=== PATIENT | female | born 1950 | race Caucasian/White ===

== ENCOUNTER 2019-01-07 00:45 | Inpatient (IN) ==
[2019-01-07] MEDS ORDERED: ZOFRAN IV ONE (01:55)
[2019-01-07] MEDS ORDERED: DILAUDID IV ONE (01:55)
--- NOTE | 2019-01-07 02:03 | PROVIDER DOCUMENTATION ---
HPI-Abdominal Pain/GI Problem - General Chief Complaint: Post Op Complaint Stated Complaint: POST OP COMPLICATIONS Time Seen by Provider: 01/07/19 01:55 Allergies/Adverse Reactions: Patient Allergies Allergy/AdvReac Type Severity Reaction Status Date / Time No Known Allergies Allergy Verified 01/02/19 10:18 Home Medications: Home Medication List Medication Instructions Recorded Confirmed Last Taken Type Levothyroxine [Synthroid] 125 microgm PO DAILY 04/22/15 01/02/19 01/05/19 08:00 History Fluoxetine [Prozac] 20 mg PO DAILY #0 capsule 04/28/15 01/02/19 01/05/19 08:00 Rx Fenofibrate [Tricor] 160 mg PO DAILY 01/02/19 01/02/19 01/05/19 08:00 History Losartan [Cozaar] 25 mg PO DAILY 01/02/19 01/02/19 01/05/19 08:00 History Hydrocodone/APAP 7.5 mg/325 mg 1 ea PO Q4H PRN #15 tab 01/06/19 Unknown Rx [Napoleon-7.5] - History of Present Illness-ABD Nature of Presenting Problems: Sever R az eof body pain. She had laproscopic cholecystectomy yest am. says she was slow to awaken, spent most of day in recovery, did not go home until afternoon. says that Dr Vaughne also had to move her stomach downNo relief with hydrocodone. No fever, no SOB, no N/V. Has not had flatus since surgery. Operative report was reviewed. Pain Radiation: reports: shoulder (bilateral) Quality of Pain: reports: sharp, stabbing Severity in ED: reports: severe Timing: reports: still present, constant Modifying Factors: improves with: movement (makes worse) Similar Symptoms Previously?: No Recently seen or treated by another doctor?: Yes Review of Systems - Adult - REVIEW OF SYSTEMS - ADULT Constitutional: reports: no symptoms reported Eyes: reports: no symptoms reported Ears, Nose, Mouth & Throat: reports: no symptoms reported Cardiovascular: reports: no symptoms reported Respiratory: reports: no symptoms reported Gastrointestinal: reports: see HPI Past History - Adult - PAST MEDICAL HISTORY-ADULT Review of Records: reports: Medications Reviewed Cardiovascular: reports: HTN Respiratory: reports: denies history Gastrointestinal: reports: cholelithiasis Musculoskeletal: reports: denies history Neurological: reports: denies history Psychiatric: reports: depression Endocrine/Immune: reports: thyroid disorder Physical Exam-General - PHYSICAL EXAM-ADULT Initial Vital Signs Reviewed: Yes - CONSTITUTIONAL General Appearance: appears well, alert, severe distress - EYES Eyes: PERRL/EOMI, pink conjunctivae - HEAD, EARS, NOSE, MOUTH & THROAT HENMT: normocephalic/atraumatic, moist mucous membranes, normal ENT inspection, pharynx normal - NECK Neck: full range of motion, supple, normal inspection - RESPIRATORY Respiratory: lungs clear, normal breath sounds, no pleuratic chest pain, no respiratory distress, no accessory muscle use - CARDIOVASCULAR Cardiovascular: regular rate, rhythm, no edema, no gallop, no murmur - GASTROINTESTINAL (ABDOMEN) Abdominal Exam: normal bowel sounds, soft, other (mild tender epigastrum, RUQ. 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 as tested, grossly normal, no motor/sensory deficits - PSYCHIATRIC Psych/Mental Status: normal mood/affect, normal thought content, normal thought process, oriented x 3 Progress - PLAN OF CARE/RESULTS Progress/Plan/Lab Results: Vital Signs - 8 hr 01/07/19 00:46 Temperature 97.6 F Pulse Rate 58 L Respiratory Rate 18 Blood Pressure 131/81 O2 Sat by Pulse Oximetry 97 Orders Category Date Time Status CT ABD/PELVIS W/IV CONT ONLY [CT] Stat Exams 01/07/19 01:56 Ordered CBC WITH DIFF [HEME] Stat Lab 01/07/19 01:56 Uncollected COMPREHENSIVE METABOLIC PANEL [CHEM] Stat Lab 01/07/19 01:56 Uncollected Hydromorphone [Dilaudid] Med 01/07/19 01:55 Discontinued 2 mg IV NOW ONE Ondansetron [Zofran] Med 01/07/19 01:55 Discontinued 8 mg IV NOW ONE Result Diagrams: 01/07/19 02:36 01/07/19 02:36 - CT/MRI 1 CT Study: Abdomen, Pelvis Impression: Abnormal (post op changeswith RUQ fat induration, small amt blood in GB fossa, tracking down to R liver, pelvis. no active bleeding. Hepatomegaly, mod stool, per Dr Miguel) - CONSULTS/PCP/HOSPITALIST Notification #1 *Consult/PCP/Hospitalist*: Niya Time Discussed: 04:05 Reason/Comments: Admit to [facility], NPO, fluids Consult Disposition: Admit Departure - Departure Date of Disposition Decision: 01/07/19 Time of Disposition Decision: 04:13 DIAGNOSIS: Post-operative pain, Leukocytosis Disposition: ADMITTED INPATIENT 09 Certified Medical Emergency: Emergent Condition: Good Referrals and Follow-Ups: Joseph Jones, DPM [Primary Care Provider] - - Critical Care Note This patient required my direct & personal management of CC.: No Attestation - Physician/ JACKELIN Attestation Patient care was provided by Advanced Practice Provider:: No The physician spent face to face time with patient:: Yes Advanced Practice Provider documentation review:: Supervising physician onsite and consulted in the evaluation and care of this patient. The physician did have a face to face encounter with the patient.
[2019-01-07 02:51] LABS: HEMATOCRIT 38.9 % (37.0-47.0); HEMOGLOBIN 12.9 g/dL (12.0-16.0); MCHC 33.2 g/dL (33-37); MCV 90.5 FL (81-99); MPV 9.8 FL (7.4-10.4); NEUT% 77.2 % (42.2-75.2); PLT 418 X1000 (130-400); RDW 13.8 % (11.5-14.5); WBC 17.43 X1000 (4.8-10.8)
[2019-01-07 02:52] LABS: BASO# 0.04 X1000 (0.0-0.2); BASO% 0.2 % (0.0-0.8); EOS# 0.02 X1000 (0.0-0.7); EOS% 0.1 % (0.0-10.0); IMM GRAN# 0.03 X1000 (0.0-0.04); IMM GRAN% 0.2 % (0.0-0.5); LYMPH# 2.44 X1000 (1.2-3.4); MONO# 1.45 X1000 (0.11-0.59); MONO% 8.3 % (1.7-9.3); NEUT# 13.45 X1000 (1.4-6.5)
[2019-01-07 03:39] LABS: AGAP 13; ALB/GLOB RATIO 1.3; ALBUMIN 4.3 g/dL (3.5-5.0); ALKALINE PHOSPHATASE 62 U/L (32-104); BUN 17 mg/dL (8-22); CALCIUM 9.4 mg/dL (8.8-10.2); CHLORIDE 98 mmol/L (98-107); COSMO 269; CREATININE 0.9 mg/dL (0.5-0.9); ESTIMATED GFR > 60; GLUCOSE 145 mg/dL (70-104); GOT 44 U/L (10-30); GPT 27 U/L (10-36); POTASSIUM 4.7 mmol/L (3.5-5.1); SODIUM 132 mmol/L (136-145); TCO2 21 mmol/L (25-35); TOTAL BILIRUBIN 0.63 mg/dL (0.20-1.00); TOTAL PROTEIN 7.5 g/dL (6.3-8.3)
[2019-01-07] MEDS ORDERED: NS 1,000 ML IV ONE (04:05)
[2019-01-07] MEDS ORDERED: ZOSYN 3.375 GM in NS 50 ML IV ONE (04:05)
[2019-01-07] MEDS ORDERED: DILAUDID IV PRN (04:15)
[2019-01-07] MEDS ORDERED: ZOFRAN IV PRN (04:15)
--- NOTE | 2019-01-07 06:25 | Diag Imaging Result Doc PS360 ---
CT ABD/PELVIS W/IV CONT ONLY - 01/07/2019 INDICATION: R side pain, had GB out this am COMPARISON: None FINDINGS: There is scattered atelectasis in the lung bases. There are findings of recent cholecystectomy with some edema in the subcutaneous tissue in the right upper quadrant. The gallbladder is absent. No biliary dilation. There is some trace hemorrhagic free fluid in the pelvis. No significant free air. There is moderate constipation. No bowel obstruction. Urinary bladder and rectum are normal. Bones are intact. IMPRESSION: 1. Scattered linear atelectasis in the lung bases. 2. Trace hemorrhagic free fluid in the pelvis. 3. Moderate constipation. This exam was performed using automated exposure control, adjustment of mA or kV according to patient size, and/or use of iterative reconstruction technique Electronically signed by Frederick Farr 01/07/2019 6:23 AM
[2019-01-07 09:58] LABS: URINE SOURCE CATH
[2019-01-07] MEDS ORDERED: ZOSYN 3.375 GM in NS 50 ML IV SCH (10:00)
--- NOTE | 2019-01-07 10:01 | HISTORY AND PHYSICAL ---
CHIEF COMPLAINT: Pain all over. HISTORY OF PRESENT ILLNESS: This is a 68-year-old female who underwent laparoscopic cholecystectomy yesterday. She was discharged late in the afternoon after having some urinary retention. She said she was not in too much pain when she left. However, when she got home, she started having pain all over. She had pain in her legs, in her back, in her shoulders, and in her right upper abdomen. She had trouble laying down. She had trouble getting comfortable. It progressively got worse. The Zelien[place] did not help her and she returned to the emergency room. She also states she has not voided since she had the in-and-out catheter yesterday afternoon. She denies nausea or vomiting. She has gotten some relief with IV pain medicine in the emergency room. PAST MEDICAL HISTORY: High blood pressure, bladder problems, hypercholesterolemia. PAST SURGICAL HISTORY: Laparoscopic cholecystectomy with operative cholangiogram, hysterectomy, tonsillectomy. HOME MEDICATIONS: Synthroid, fluoxetine, fenofibrate, losartan. SOCIAL HISTORY: Negative for tobacco. She drinks alcohol occasionally. FAMILY HISTORY: Reviewed and noncontributory. ALLERGIES: No known drug allergies. REVIEW OF SYSTEMS: Ten systems reviewed and negative except as noted above. PHYSICAL EXAMINATION: VITAL SIGNS: Temperature 99.5 degrees, pulse 62, respirations 18, blood pressure 128/53, O2 saturation 92%. GENERAL: Well-developed female in no distress who looks her stated age. CV: Regular rate and rhythm. RESPIRATORY: Bilateral breath sounds. No increased work of breathing. GI: Soft, nondistended. Mildly tender. No rebound or guarding. Incisions clean, dry, and intact. EXTREMITIES: No clubbing, cyanosis, or edema. MUSCULOSKELETAL: Moves all extremities equally and well. LABORATORY: White blood cell count 17,000, hemoglobin 12.9, hematocrit 38.9. Sodium 132, potassium 4.7, chloride 98, CO2 of 21, BUN 17, creatinine 0.9, glucose 145. AST 44, ALT 27, alkaline phosphatase 62, total bilirubin 0.63. IMAGING: A chest x-ray yesterday afternoon showed right lower lobe or middle lobe atelectasis and cardiomegaly. CT scan of the abdomen and pelvis this morning showed scattered linear atelectasis in the lung bases, trace hemorrhagic free fluid in the pelvis, and moderate constipation. There was no significant free air. There was no significant fluid in the right upper quadrant. No bowel obstruction. The bladder and rectum appeared normal. ASSESSMENT AND PLAN: A 68-year-old female status post laparoscopic cholecystectomy with postoperative pain, urinary retention, and atelectasis. I will encourage her to be out of bed today and using her incentive spirometer. We will give her an in-and-out catheter. We will keep her on some normal saline and start her on a clear liquid diet. I will stop the Zosyn as I think the leukocytosis is simply reactive due to surgery. I do not have a high suspicion of an immediate intra-abdominal complication. We will try to manage her pain with Percocet rather than Zelienople and Dilaudid as a fallback. cc: Benson Tena MD
[2019-01-07 10:30] LABS: BILIRUBIN URINE NEGATIVE (NEGATIVE); BLOOD URINE SMALL (NEGATIVE); COLOR YELLOW; GLUCOSE URINE NEGATIVE (NEGATIVE); KETONE URINE TRACE mg/dL (NEGATIVE); LEUKOCYTES URINE NEGATIVE (NEGATIVE); NITRITE URINE NEGATIVE (NEGATIVE); PH URINE 5.5; PROTEIN URINE TRACE mg/dL (NEGATIVE); SP GRAVITY URINE 1.045; TURBIDITY URINE CLEAR (CLEAR); UR EPITHELIAL CELLS <10 /HPF (<10); URINE BACTERIA NEGATIVE /HPF; URINE WBC <10 /HPF (<10); UROBILINOGEN URINE NORMAL (NORMAL)
[2019-01-07] MEDS: PERCOCET-10 PO PRN ×3 (10:35→20:04)
[2019-01-08] MEDS: PERCOCET-10 PO PRN ×6 (01:21→21:41)
[2019-01-08 07:00] LABS: HEMATOCRIT 36.9 % (37.0-47.0); HEMOGLOBIN 11.8 g/dL (12.0-16.0); MCH 29.5 PG (27-31); MCV 92.3 FL (81-99); WBC 11.95 X1000 (4.8-10.8)
--- NOTE | 2019-01-08 16:37 | GENERAL SURGERY PROGRESS NOTE ---
DATE: 01/08/2019 SUBJECTIVE: The patient is feeling better. She has less abdominal pain. She ambulated some yesterday. She is tolerating her clear liquids. OBJECTIVE: She is afebrile. Vital signs are stable.General: She is awake, alert, oriented x3. No acute distress. Gastrointestinal: Soft, nondistended, minimally tender. Incision is clean, dry, and intact. LABORATORY: White blood cell count 11.9, hemoglobin 11.8, hematocrit 36.9. ASSESSMENT AND PLAN: A 68-year-old female status post laparoscopic cholecystectomy, readmitted for postoperative abdominal pain. She has also had some respiratory insufficiency secondary to atelectasis. She is working on incentive spirometer. We are weaning her oxygen off. She also has urinary retention postoperatively. We will remove the catheter today and see if she can void. If she can void and she can wean off her oxygen, we will discharge her home later today. cc: Benson Tena MD
[2019-01-09] MEDS: PERCOCET-10 PO PRN ×4 (01:49→14:37)
[2019-01-09 11:22] VITALS: BP 147/75
[2019-01-09 12:25] LABS: ALLEN TEST YES; BE 3.9 mmoll (-3.0-3.0); BLOOD TYPE ARTERIAL; HCO3-(ACT) 27.9 mmoll (20.0-26.0); O2(CT) 16.7 mL/dL (15.0-23.0); O2HB 94.1 % (95.0-99.0); PCO2(98.6) 38 mmHg (35-45); PO2(98.6) 71 mmHg (60-100); SAMPLE BLOOD; SAO2 97.5 % (95.0-100.0); THB 12.6 g/dL (11.5-17.4); pH(98.6) 7.47 (7.35-7.45)
[2019-01-09 12:26] LABS: MODALITY CANNULA
--- NOTE | 2019-01-09 15:09 | Diag Imaging Result Doc PS360 ---
CHEST-1 VIEW - 01/09/2019 INDICATION: SOB COMPARISON: 01/06/2019 FINDINGS: Lung volumes are severely low. Stable mild right hemidiaphragm elevation. There is increasing mild nonspecific right lower lobe atelectasis or infiltrate. Stable mild cardiomegaly. IMPRESSION: Low lung volumes. Increasing right lower lobe atelectasis or infiltrate. Electronically signed by Frederick Farr 01/09/2019 3:07 PM
--- NOTE | 2019-01-09 20:03 | GENERAL SURGERY PROGRESS NOTE ---
DATE: 01/09/2019 SUBJECTIVE: The patient is feeling better. No chest pain, shortness of breath, abdominal pain, nausea, or vomiting. She is tolerating a diet. She is passing gas and ambulating and voiding on her own. However, she does continue to drop her oxygen saturations when she walks. OBJECTIVE: vital signs: She is afebrile, pulse 62, respirations 16, blood pressure 147/75, and O2 saturation 96% on 3 L sitting. General: Awake, alert, oriented x4. No acute distress. CARDIOVASCULAR: Regular rate and rhythm. Respiratory: Bilateral breath sounds. No work of breathing. Gastrointestinal: Soft, nondistended. Incisions clean, dry, and intact. Nontender. LABORATORY: The pH 7.47, pCO2 of 38, PaO2 of 71, bicarbonate 27.9, base excess 3.9. IMAGING: A chest x-ray shows low lung volumes with right basilar atelectasis or infiltrate. ASSESSMENT AND PLAN: A 68-year-old female status post laparoscopic cholecystectomy readmitted with abdominal pain which is resolving and now with hypoxia requiring ongoing oxygen via nasal cannula. We will consult Pulmonary for prolonged oxygen requirements, and she may be stable for discharge later today and will go home with home oxygen. cc: Benson Tena MD
--- NOTE | 2019-01-09 20:41 | CONSULTATION ---
DATE OF CONSULTATION: 01/09/2019 REQUESTING PROVIDER: Benson Tena M.D. REASON FOR CONSULTATION: Home oxygen. HISTORY OF PRESENT ILLNESS: This is a 68-year-old female with a medical history of hypertension, bladder problems, and hypercholesterolemia. She underwent laparoscopic cholecystectomy and laparoscopic intracorporeal suture repair of serosal tear of the prepyloric stomach secondary to chronic calculous cholecystitis per Dr. Tena on 01/06/2019. She was discharged home with [place] on the same day after the surgery, but she came back to the ER on 01/07/2019 with severe right-sided pain which was not relieved with [place]. She also had trouble with urination. She has been admitted to the medical floor for further evaluation and management. At the time of admission, she also had desaturation at room air. She was put on nasal cannula at 4 L/min. She was to be discharged yesterday afternoon, but she had trouble weaning off oxygen, so she was kept in the hospital. At the time of my examination, the patient is still on nasal cannula at 3 L. Her respiration is very shallow. She complained of pain on the right chest. She also had some intermittent pain on the left upper quadrant which, per the patient, is due to gas. She reports some cough, but not worrisome for her. She has very poor cough effort. She states generally she is getting better. She had a sleep study done on 11/18/2018 which was negative. She was told at the time that her oxygen saturation dropped slightly when she sleeps. She reports no fever, chills, chest pain, or palpitations. PAST MEDICAL AND SURGICAL HISTORY: 1. Hypertension. 2. Bladder problems. 3. Hypercholesterolemia. 4. Chronic calculous cholecystitis status post laparoscopic cholecystectomy and laparoscopic intracorporeal suture repair of serosal tear of the prepyloric stomach by Dr. Tena on 01/06/2019. 5. Hysterectomy. 6. Tonsillectomy. SOCIAL HISTORY: The patient is and lives with her at home. She has no history of tobacco use or illicit drug use. She drinks alcohol occasionally. FAMILY HISTORY: Reviewed and noncontributory. ALLERGIES: No known drug allergies. REVIEW OF SYSTEMS: A 10-point review of systems was conducted and the pertinent is listed within the HPI, otherwise not contributory. PHYSICAL EXAMINATION: Vital signs: Temperature 98.6, blood pressure 147/75, pulse 63, respiratory rate 17, oxygen saturation 96% on nasal cannula at 3 L. General: Well developed, lying in bed with the patient's at the bedside, and no acute distress noted. HEENT: Atraumatic. Trachea midline. Mucosa pink and moist. Respiratory: Even and unlabored. Symmetrical excursion. Auscultation revealed diminished breathing sounds bibasilarly, otherwise clear. Cardiovascular: Regular rate and rhythm with no murmur noted. Gastrointestinal: Bowel sounds normoactive in all 4 quadrants. Soft, nondistended. Intermittently tender in the left upper quadrant which, per the patient, is due to gas. Extremities: No pedal edema. No cyanosis. No clubbing. Neurologic: Alert and oriented x3. Speech fluent. Follows commands. LABORATORY DATA: ABG: pH 7.47, pCO2 of 38, pO2 of 71, HCO3 is 27.9, base excess 3.9, oxyhemoglobin 94.1. ProBNP 344. IMAGING DATA: Chest x-ray revealed severely low lung volumes, stable mild right hemidiaphragm elevation, increase in mild nonspecific right lower lobe atelectasis or infiltrate, and stable mild cardiomegaly. ASSESSMENT: This is a 68-year-old female with a medical history of hypertension, bladder problems, and hypercholesterolemia. She has been admitted to the medical floor since 01/07/2019 with severe pain secondary to laparoscopic cholecystectomy on 01/06/2019. 1. Acute hypoxic respiratory failure. 2. Severely low lung volumes with increasing right lower lobe atelectasis or infiltrate. 3. Pain related to laparoscopic cholecystectomy done on 01/06/2019. PLAN: 1. Continue supplemental oxygen as needed. 2. The patient will follow up in 2 weeks in our office after discharge. We will re-evaluate her oxygen requirement at that time. 3. Encouraged the patient to do deep breathing and cough routinely, encouraged the patient to get up and be more active, and encouraged the patient to use incentive spirometry routinely. Thank you for the courtesy of this consult. Dictated by THU Estraad for Osman Fonseca MD cc: THU Estrada MD Jason R. Seale, MD [facility]ENTER[facility]vy
== END 2019-01-09 16:10 | disposition home or self-care (01) | DRG 987 ==
LOC: ED 00:45 → 4N 06:48
PROVIDERS: ADMIT Surgery; ATTEND Surgery
CPT/HCPCS: 71010; 71045; 74177; 74300; 80053; 81001; 82805; 83880; 85025; 85027; 87040; 88304; 94761; 94799; 96361; 96365; 96375; 97116; 97162; 97530; 99285; A9270; C1751; J0131; J0330; J0690; J1100; J1170; J2405; J2543; J3010; J7030; J7120; Q9966; Q9967